=== PATIENT | female | born 1985 | race Caucasian/White ===

== ENCOUNTER 2024-08-20 05:48 | Day surgery (SDC) | payer BC, MEDICAID ==
[2024-08-17 11:44] LABS: BASOPHILS % (AUTO) 0.5 % (0-1); EOSINOPHILS # (AUTO) 0.1 X10'3 (0-0.9); EOSINOPHILS % (AUTO) 1.8 % (0-6); LYMPHOCYTES # (AUTO) 2.1 X10'3 (1.1-4.8); LYMPHOCYTES % (AUTO) 28.1 % (21-51); MEAN CORPUSCULAR HEMOGLOBIN 30.1 PG (27.0-31.0); MEAN CORPUSCULAR HGB CONC 33.9 g/dL (33.0-36.5); MEAN CORPUSCULAR VOLUME 88.9 FL (78-98); MEAN PLATELET VOLUME 7.6 FL (7.4-10.4); MONOCYTES # (AUTO) 0.6 X10'3 (0-0.9); MONOCYTES % (AUTO) 7.9 % (2-12); NEUTROPHILS # (AUTO) 4.6 X10'3 (1.8-7.7); NEUTROPHILS % (AUTO) 61.7 % (42-75); PRE OP HEMATOCRIT 41.4 % (35.0-45.0); PRE OP PLATELET COUNT 290 X10'3 (140-440); PRE OP WHITE BLOOD COUNT 7.4 10'3 (4.8-10.8); RED BLOOD COUNT 4.65 X10'6 (4.20-5.60); RED CELL DISTRIBUTION WIDTH 12.8 % (11.5-14.5)
[2024-08-17 11:48] LABS: BILIRUBIN,URINE NEGATIVE (Neg); COLOR,URINE YELLOW (Yellow); GLUCOSE, URINE NEGATIVE (Neg); KETONES,URINE NEGATIVE (Neg); LEUKOCYTE ESTERASE ,URINE NEGATIVE (Neg); NITRITES, URINE NEGATIVE (Neg); OCCULT BLOOD,URINE TRACE-INTACT (Neg); PH,URINE 5.5 (4.8-8.0); PROTEIN,URINE NEGATIVE (Neg); UROBILINOGEN,URINE 0.2 E.U/dL (0.2-1.0)
[2024-08-17 11:49] LABS: CLARITY,URINE SLIGHTLY CLOUDY (Clear); UA COLLECTION TYPE NON-SPECIFIED
[2024-08-17 11:53] LABS: HCG SERUM QL NEGATIVE; SQUAMOUS EPITHELIAL CELL,UR MANY /LPF (FEW)
[2024-08-17 11:54] LABS: BACTERIA,URINE FEW /HPF (Neg); MUCUS STRANDS FEW /LPF (Neg); RBC,URINE 0-2 /HPF (0-2); WBC,URINE 0-4 /HPF (0-4)
[2024-08-17 11:57] LABS: ALBUMIN 3.1 G/DL (3.4-5.0); ALBUMIN/GLOBULIN RATIO 0.6 (1.1-1.5); ALKALINE PHOSPHATASE 81 IU/L (46-116); BLOOD UREA NITROGEN 12 MG/DL (7-18); BUN/CREATININE RATIO 20.7 (10.0-20.0); CALCIUM 8.1 MG/DL (8.5-10.1); CHLORIDE 105 MMOL/L (99-107); CREATININE 0.58 MG/DL (0.40-0.90); PRE OP ALT 23 U/L (30-65); PRE OP ANION GAP 9 (8-16); PRE OP AST 13 U/L (10-37); PRE OP BILIRUB, TOTAL 0.3 MG/DL (0.0-1.0); PRE OP GLUCOSE 91 MG/DL (70-104); PRE OP POTASSIUM 4.3 MMOL/L (3.4-5.1); PRE OP SODIUM 140 MMOL/L (135-145); TOTAL PROTEIN 8.1 G/DL (6.4-8.2); eGFR > 90 ML/MIN
[2024-08-20] VITALS (11 sets, daily range): BP systolic 113–141; BP diastolic 62–90; PULSE 65–89; RESP 12–18; TEMP 97.6; O2SAT 95–100
[~2024-08-20] VITALS: Ht 162.6 cm; Wt 100.9 kg
[~2024-08-20 05:48] MED LIST: ALPR0.5T8 PO; MAGN400C PO; NYQUIL; SEMA2.4P SQ
[2024-08-20] MEDS: famotidine 20mg tablet PO ONE (06:28)
[2024-08-20] MEDS: ringers solution, lacted 1,000 ML IV SCH (06:28)
[2024-08-20] MEDS: VANCOMYCIN/WATER FOR INJ (PEG) 1.5GM/300 ML IVPB IV ONE (06:28)
[2024-08-20] MEDS ORDERED: bacitracin 15gm ointment TP ONE (06:48)
[2024-08-20] MEDS ORDERED: BUPIVAcaine 2.5mg/ml inj 50ml vial (contains preservative) ONE (06:48)
[2024-08-20] MEDS ORDERED: sevoflurane 250ml liquid IH ONE (07:17)
[2024-08-20] MEDS ORDERED: cloNIDine hcl/PF 100mcg/ml inj ONE (07:18)
[2024-08-20] MEDS ORDERED: fentaNYL/PF 50MCG/1 ML 2ML syringe ONE ×2 (07:19→07:59)
[2024-08-20] MEDS ORDERED: midazolam 1 mg/ML 2ml injection ONE (07:20)
[2024-08-20] MEDS ORDERED: ROPIVAcaine 0.5% (5mg/ml) 30ml vial ONE ×2 (07:28)
[2024-08-20] MEDS ORDERED: propofol inj 20 ML IV ONE (07:58)
[2024-08-20] MEDS ORDERED: proCHLORperazine 10 MG/2 ml inj IV PRN (08:35)
[2024-08-20] MEDS ORDERED: morphine 2 MG/ML inj. syringe IV PRN (08:35)
[2024-08-20] MEDS ORDERED: ringers solution, lacted 1,000 ML IV SCH (08:35)
[2024-08-20] MEDS ORDERED: meperidine/PF 25mg/ml syringe IV PRN ×2 (08:35)
[2024-08-20] MEDS ORDERED: dexamethasone sod phosphate 4mg/ml inj. ONE (09:32)
[2024-08-20] MEDS ORDERED: ondansetron/PF 4mg/2ml inj ONE (09:32)
[2024-08-20] MEDS: meperidine/PF 25mg/ml syringe IV PRN (10:12)
[2024-08-20] MEDS: acetaminophen 1,000mg/100ml IV 100 ML IV ONE (10:21)
[2024-08-20] MEDS: ketorolac trometh 30MG/ML vial 30 MG/ML VIAL IV ONE (10:21)
[2024-08-20] MEDS: morphine 4 MG/ML inj SYRINge IV PRN (10:36)
[2024-08-20] MEDS: ondansetron/PF 4mg/2ml inj IV PRN (11:32)
== END 2024-08-20 11:48 | disposition home or self-care (01) ==
LOC: PAS IN 05:48 → UNDOADMIN 05:48 → SSTAY O 05:48 → EDSTATUS 07:30 → PAS 11:48 → UNDODISIN 11:48
PROVIDERS: ATTEND Podiatrist Foot & Ankle Surgery
DX: M21.41 Flat foot [pes planus] (acquired), right foot (principal); M25.374 Other instability, right foot; M19.071 Primary osteoarthritis, right ankle and foot; F41.9 Anxiety disorder, unspecified; K21.9 Gastro-esophageal reflux disease without esophagitis; G43.909 Migraine, unspecified, not intractable, without status migrainosus; Z87.891 Personal history of nicotine dependence; Z79.82 Long term (current) use of aspirin; Z79.899 Other long term (current) drug therapy; G89.18 Other acute postprocedural pain
CPT/HCPCS: 20900; 27687; 28238; 28270; 28300; 28740; 36415; 64445; 64447; 73620; 80053; 81001; 82948; 84703; 85025; A6223; C1713; J0131; J0735; J1100; J1885; J2175; J2250; J2270; J2405; J2704; J2795; J3010; J3372; J3490; J7030; J7120; Z7506; Z7508; Z7512; 76000; A4215; A4618; A6449; A7000